=== PATIENT | male | born 1970 | race Caucasian/White ===

== ENCOUNTER 2024-01-06 18:29 | Emergency (ER) | payer BC, SELFPAY ==
[2024-01-06 18:43] VITALS: BP 146/103; PULSE 80; RESP 18; TEMP 36.3; O2SAT 96
[2024-01-06 20:57] VITALS: RESP 16
--- NOTE | 2024-01-06 22:00 | RT.EKG_ITS ---
APPROVED REPORT Exam: Resting ECG Reason for Exam: Qtc Check Patient Location: E HR:66 bpm ECG Measurements Heart Rate 66 AXIS TN 161 P 58 QRSd 115 QRS -41 QT 428 T 62 QTc 449 Conclusion Sinus rhythm...normal P axis, V-rate 60- 99 Left ventricular hypertrophy...multiple LVH criteria ST elev, probable normal early repol pattern...ST elevation, age<55 Physician: no stemi
--- NOTE | 2024-01-06 22:10 | W.ED.GENAD ---
Discharge Plan Disposition Patient Disposition: Home Condition: Stable Discharge Details Clinical Impression: Insomnia Primary Care Provider: Verito Foy ED Provider: Yo Cisneros Discharge Instructions Instructions: Insomnia (ED) Additional Instructions: You were seen in the emergency department for your flu illness as well as insomnia. I am recommending that you try Haldol, lorazepam and Benadryl at the same time for relief. Please follow-up with your primary care provider about possibly starting a long-term sleep medication, please return to the ER for any emergent concerns, respiratory distress, severe abdominal pain, fevers not responding to Tylenol and ibuprofen, intractable nausea or vomiting. Referrals: Verito Foy [Primary Care Provider] - Discharge Data Discharge Date/Time-TO BE ENTERED AT DEPARTURE: 01/06/24 23:33 HPI General Date/Time Provider Initiated Documentation: 01/06/24 19:11. HPI Narrative: 53 year-old male presents to ED today by POV/ambulating with a chief complaint of insomnia- hasn't slept in 4 days, was diagnosed with flu 6 days ago- is on prednisone. Quality described as cough, feels wired, no radiation to shortness of breath, high fever, respiratory distress, inability to tolerate PO intake. Severity is described as moderate. Palliating factors include nothing is helping- has tried melatonin, benadryl, ativan. Provoking factors include nothing specific. Patient not anticoagulated. Related Data Allergies Allergy/AdvReac Type Severity Reaction Status Date / Time aspirin Allergy Mild Skin Rash Verified 01/06/24 22:52 NSAIDS (Non-Steroidal Allergy Mild Skin Rash Verified 01/06/24 22:52 Anti-Inflamma General Stated Complaint: GenMedical YESICA: 4 Review of Systems All systems reviewed & are unremarkable except as noted in HPI and below Exam Narrative Exam Narrative: GENERAL APPEARANCE: Well-nourished, non-toxic, awake and alert, atraumatic, no acute distress. SKIN: Warm, pink, dry, intact, without rashes/lesions/ulcerations. HEAD: Normocephalic, atraumatic, normal hair distribution for gender/age. EYES: Pupils PERRLA, EOMs intact without nystagmus, normal conjunctiva, no exudates on lids/lashes. ENT: Nares patent, no circumoral cyanosis, no facial swelling NECK: Supple, trachea midline, painless cervical ROM. LUNGS/CHEST: Lungs- rhonchi throughout without respiratory distress, non-labored respirations, normal A/P diameter, symmetrical expansion, no chest wall deformity HEART (CV/PV): Regular rate and rhythm without murmur, no peripheral edema, no JVD. ABDOMEN: Soft, non-distended, no guarding. MSK: Normal ROM, no swelling/deformity to bilateral UEs or LEs, moving all extremities without weakness, no cyanosis, spine midline without tenderness, normal curvature. NEURO: Mental Status AAOx4 - alert to person, place, time, events No facial droop, no forehead involvement. Motor: No focal weakness - strength 5/5 in bilateral UEs and LEs, proximal and distal, symmetric. Sensory: sensation intact to light touch globally. Gait normal: patient ambulated without ataxia into ED room. PSYCH: euthymic, cooperative, pleasant, appropriate speech Course Vital Signs Vital signs: Vital Signs Temperature 36.3 C L 01/06/24 18:43 Pulse 80 01/06/24 18:43 Respiratory Rate 18 01/06/24 18:43 Blood Pressure 146/103 H 01/06/24 18:43 Pulse Oximetry 96 01/06/24 18:43 Temperature 36.3 C L 01/06/24 18:43 Temperature Source Tympanic 01/06/24 18:43 Pulse 80 01/06/24 18:43 Respiratory Rate 16 01/06/24 20:57 Respiratory Effort Normal 01/06/24 20:57 Respiratory Depth Normal 01/06/24 20:57 Respiratory Pattern Normal 01/06/24 20:57 Blood Pressure 146/103 H 01/06/24 18:43 Blood Pressure Position Sitting 01/06/24 18:43 Pulse Oximetry 96 01/06/24 18:43 Oxygen Delivery Method Room Air 01/06/24 18:43 Oxygen Flow Rate 0 01/06/24 18:43 Pain Level 3 01/06/24 18:43 Comment from gall bladder surgery 2 weeks ago 01/06/24 18:43 Medical Decision Making This dictation utilizes [id number] dictation software and may contain unedited grammatical errors. 53 y/o M presents to ED today with a chief complaint of recent influenza diagnosis, being treated with prednisone currently- and is feeling very wired and has had trouble getting any sleep for the past 4 nights. He has tried benadryl melatonin, and ativan without relief. Patient denies any respiratory distress, his only complaint is inability to sleep. Patients' medical history: noncontributory. Family and social history: noncontributory. Pertinent exam findings / vital signs include rhonchorous lungs without respiratory distress, benign abdomen, nontoxic vitals, neuro intact. Differential / pathologies of concern include insomnia, steroid medication reaction, influenza. Diagnostic studies of: -none. Interventions of: -provided dose of 2mg haldol, 1mg Ativan, and 50mg benadryl, patient felt tired and ready for discharge, daughter drove him home. ED Course/Assessment/Plan: 53-year-old male presents with likely steroid medication reaction of insomnia, has been on prednisone for influenza, has tried individual sleep aid medications but has not combined them. I did provide him with p.o. Haldol Ativan and Benadryl and he felt comfortable for discharge to for a trial of relief at home this evening. His daughter drove him home I stressed strict return criteria for any respiratory distress. Findings not consistent with hypoxic respiratory failure, respiratory distress. Disposition of Insomnia. Patient verbalized understanding of the plan and return to ED criteria and engaged in shared decision making. Medical Records Medical records reviewed: Yes I reviewed the patient's medical records. Quality:[facility] Health Related Social Needs: No Data to Display [facility] All Active Problems (Updated 01/06/24 @ 22:29 by DANNY Mcdaniels) Insomnia (Acute) Social History Smoking/Tobacco Use Status: Never Smoking risk assessment performed?: Yes Alcohol Intake: never Substance use type: does not use Do you feel safe at home: Yes Do you feel safe in your relationship?: Yes
[2024-01-06] MEDS: diphenhydrAMINE 25 MG CAP 50 MG PO (22:53)
[2024-01-06] MEDS: Haloperidol 1 MG TAB 2 MG PO (22:53)
[2024-01-06] MEDS: LORazepam 1 MG TAB PO (22:54)
== END 2024-01-06 23:33 | disposition home or self-care (01) ==
PROVIDERS: Emergency Provider Physician Assistant; PCP Nurse Practitioner Family
DX: G47.00 Insomnia, unspecified (principal)
CPT/HCPCS: 93005; 99283; 93010